=== PATIENT | male | born 1995 | race Caucasian/White ===

== ENCOUNTER 2020-11-14 13:10 | Day surgery (SDC) | payer OTHER ==
[~2020-11-14] VITALS: Ht 188 cm; Wt 113.4 kg
[2020-11-14] MEDS ORDERED: HYDROCODON-ACE1 EA10 PO (15:06)
[2020-11-14] MEDS ORDERED: DICLOFENAC SODI75 MG PO (15:06)
[2020-11-14] MEDS ORDERED: SULFAMETHOXAZO1 EAC1 PO (15:06)
--- NOTE | 2020-11-14 15:47 | NUR ---
11/14/20 1547 Brandi Doan 1451 PT ARRIVED IN PACU NON RESPONSIVE TO NOXIOUS STIMULI. 1510 PT REACTIVE AND SITTING UP IN BED. 1520 NO C/O'S. ASKING QUESTIONS ABOUT SURGERY. ALL QUESTIONS ANSWERED. 1535 TO DS. REPORT GIVEN TO RN. CALL LIGHT IN PLACE.
--- NOTE | 2020-11-14 15:58 | NUR ---
ICE IN PLACE TO RIGHT KNEE.
--- NOTE | 2020-11-14 17:29 | NUR ---
PT WITH REQUEST TO VOID, MOTHER BRINGS CRUTCHES TO UNIT AND PT AMBULATES TO BR WITH RN ASSIST. SUCCESSFUL 900ML VOID. BACK TO BED. SHYLA WELL, DENIES DIZZINESS AND SOB
--- NOTE | 2020-11-14 17:46 | NUR ---
D/C INSTRUCTIONS PROVIDED AND DISCUSSED ORDERED. PT VERBALIZES UNDERSTANDING AND DENIES QUESTIONS AT THIS TIME. WHEELED OFF OF UNIT BY THIS RN AND TRANSFERS INTO CAR WITH CRUTCH ASSIST. RESP EVEN AND UNLABORED. NO S/S OF DISTRESS AT THIS TIME
--- NOTE | 2020-11-16 09:54 | OR ---
[facility] [address], [place] [address] Signed DATE OF OPERATION: 11/14/2020 SURGEON: Sun Blanton MD PREOPERATIVE DIAGNOSIS: Traumatic laceration, right knee with tendon involvement. POSTOPERATIVE DIAGNOSIS: Traumatic laceration, right knee with tendon involvement. PROCEDURES PERFORMED: 1. Irrigation and debridement of skin and subcutaneous tissue and muscle, right knee. 2. Repair of quadriceps tendon, right knee. DRAPERY SUPERVISOR: None. ANESTHESIA: General. TOURNIQUET TIME: None. ESTIMATED BLOOD LOSS: Minimal. BRIEF HISTORY: Steven is a 25-year-old gentleman, who was trying to cut a tree that had fallen on his truck when the chainsaw caught up into his right knee just above the patella. He had a large laceration with involvement of the tendon. He was seen in the ER, and I was contacted. Risks and benefits of the operative treatment discussed with him. He elected to proceed. DESCRIPTION OF PROCEDURE: Once consent was obtained, he was taken to the operating room. After adequate anesthesia was placed on operating table, all downside pressure points well padded. The right leg was prepped and draped in a standard sterile fashion. The laceration was then investigated. There were small pieces of dirt and probable wound debris that were removed sharply. The skin edges were freshened up particularly on the inferior surface, where there was a double laceration. We then irrigated under low-pressure pulse lavage Electronically Signed By: SUN BLANTON MD 11/16/20 0954 PATIENT NAME: STEVEN HANNAH OPERATIVE REPORT DATE OF : [birth year] REPORT #: [id number] PHYSICIAN: SUN BLANTON MD PCP: NO PRIMARY CARE PHYSICIAN REPORT IS CONFIDENTIAL AND NOT TO BE RELEASED WITHOUT AUTHORIZATION [facility] [address] [place] [id number] Signed with about 1-1.5 L of normal saline. We then took a look at the tendon which had about 0.5 cm deep laceration across the medial half of the tendon, this was felt to be unstable and left require suturing. We then sutured that with FiberWire. Once this was accomplished, we then closed the wound in layers using 2-0 Monocryl, followed by 2-0 nylon with the skin. Wound was dressed with an Acticoat 7 dressing, ABD, and Harsha wrap. He was awakened and taken to the recovery room in satisfactory condition. All sponge, needle, and instrument counts were correct. Sun Blanton MD BA/PAWANL /[id number] Copies: ~ Electronically Signed By: SUN BLANTON MD 11/16/20 0954 PATIENT NAME: STEVEN HANNAH OPERATIVE REPORT DATE OF : [birth year] REPORT #: [id number] PHYSICIAN: SUN BLANTON MD PCP: NO PRIMARY CARE PHYSICIAN REPORT IS CONFIDENTIAL AND NOT TO BE RELEASED WITHOUT AUTHORIZATION
== END 2020-11-14 17:40 | disposition home or self-care (01) ==
LOC: ED 13:10 → DS 13:49
PROVIDERS: ATTEND Specialist
PROC: 0LQQ0ZZ Repair Right Knee Tendon, Open Approach (ICD-10-PCS; principal; 2020-11-14 14:15)
DX: S81.011A Laceration without foreign body, right knee, initial encounter (principal); G89.18 Other acute postprocedural pain; W29.3XXA Contact with powered garden and outdoor hand tools and machinery, initial encounter; Y93.89 Activity, other specified; Y92.9 Unspecified place or not applicable; Z20.822 Contact with and (suspected) exposure to COVID-19
CPT/HCPCS: 00300; 73560; 96374; 99284-25; C9803; J0330; J0690; J1100; J1885; J2001; J2250; J2405; J2704; J2795; U0003

== ENCOUNTER 2021-06-26 18:55 | Emergency (ER) | payer OTHER ==
[~2021-06-26] VITALS: Ht 188 cm; Wt 113.4 kg
[~2021-06-26 18:55] MED LIST: DICLOFENAC SODI75 MG PO; HYDROCODON-ACE1 EA10 PO; SULFAMETHOXAZO1 EAC1 PO
[2021-06-26] MEDS ORDERED: DOXYCYCLINE HY100 MG PO (20:59)
[2021-06-26] MEDS ORDERED: HYDROCODON-ACE1 EA10 PO (20:59)
== END 2021-06-26 21:20 | disposition home or self-care (01) ==
LOC: ED 18:55
DX: S61.432A Puncture wound without foreign body of left hand, initial encounter (principal); W32.0XXA Accidental handgun discharge, initial encounter; Z23 Encounter for immunization
CPT/HCPCS: 73130; 90471; 90715; 99284-25